=== PATIENT | female | born 1975 | race African-American/Black ===

== ENCOUNTER 2017-09-28 21:31 | Emergency (ER) | payer MEDICAID ==
[~2017-09-28] VITALS: Ht 167.6 cm; Wt 57.0 kg
[2017-09-29 01:10] LABS: BASOPHILS % 0.9 % (0.0-2.0); EOSINOPHILS % 0.5 % (0.0-5.0); HEMATOCRIT. 35.9 % (36.0-48.0); HEMOGLOBIN. 12.1 g/dL (12.0-16.0); LYMPHOCYTES % 22.2 % (20.0-50.0); MEAN CORPUSCULAR VOLUME 91.8 fL (81.0-99.0); MONOCYTES % 6.3 % (2.0-8.0); NEUTROPHILS % 70.1 % (40.0-76.0); PLATELET 187 x1000/uL (130-400); RED BLOOD CELL COUNT 3.91 mill/uL (4.2-5.4); RED CELL DISTRIBUTION WIDTH 13.3 % (11.6-14.6)
[2017-09-29 01:12] LABS: CLARITY URINE CLEAR (CLEAR); COLOR URINE YELLOW (YELLOW)
[2017-09-29 01:13] LABS: INR 1.1; KETONES URINE TRACE (NEGATIVE); LEUKOCYTE ESTERASE URINE NEGATIVE (NEGATIVE); NITRITE URINE NEGATIVE (NEGATIVE); OCCULT BLOOD URINE NEGATIVE (NEGATIVE); PROTEIN URINE NEGATIVE (NEGATIVE); PROTHROMBIN TIME 11.4 sec (9.4-11.6); SPECIFIC GRAVITY URINE 1.015 (1.005-1.030)
[2017-09-29 01:14] LABS: CHLORIDE 109 mEq/L (98-107)
[2017-09-29 01:16] LABS: HCG SCREEN NEGATIVE
[2017-09-29] MEDS: SODIUM CHLORIDE 0.9% 1,000 ML IV ONE (03:13)
[2017-09-29] MEDS: KETOROLAC 30MG/ML VIAL IV STA (03:26)
[2017-09-29 04:30] VITALS: BP 120/68
== END 2017-09-29 04:54 | disposition home or self-care (01) ==
LOC: ER 09-29 00:18
DX: N83.209 Unspecified ovarian cyst, unspecified side (principal); F17.200 Nicotine dependence, unspecified, uncomplicated; F12.10 Cannabis abuse, uncomplicated; Z88.6 Allergy status to analgesic agent; Z88.8 Allergy status to other drugs, medicaments and biological substances; Z98.890 Other specified postprocedural states
CPT/HCPCS: 36415; 76830; 76856; 80053; 81003; 83605; 83690; 84484; 84703; 85025; 85610; 96374; 99285; J1885; J7030